=== PATIENT | male | born 1945 | race Caucasian/White ===

== ENCOUNTER → 2016-12-25 | Outpatient (CLI) | payer OTHER ==
[~2016-12-25] MED LIST: ALLO100T PO; ANT25HP PO; ASPI81TA28 PO; ATEN-174 PO; MECL1TAB42 PO; OMEG10007 PO; SIMV40TA4 PO; TRIA37.5 PO; TROS20TA3 PO
[2016-12-25 12:42] LABS: BASO % 0.3 %; BASO ABS # 0.03 K/uL (0-0.2); COMPLETE YES; EOS % 1.6 %; HEMATOCRIT 46.1 % (42-52); IG% 0.6 %; LYMPH % 30.8 %; LYMPH ABS # 2.65 K/uL (1.2-3.4); MEAN CELL VOLUME 87.3 fL (80-100); MEAN CORPUSCULAR HEMOGLOBIN 29.5 pg (25-34); MEAN CORPUSCULAR HGB CONC 33.8 g/dl (32-36); MEAN PLATELET VOLUME 9.7 fL (7.4-10.4); MONO % 10.6 %; NEUT % 56.1 %; PLATELET COUNT 212 K/uL (130-400); RED BLOOD COUNT 5.28 M/uL (4.7-6.1); WHITE BLOOD COUNT 8.59 K/uL (4.8-10.8)
[2016-12-25 12:55] LABS: ALT/SGPT 34 U/L (12-78); BLOOD UREA NITROGEN 39 mg/dl (7-18); BUN/CREATININE RATIO 22.9 (10-20); CALCIUM 8.8 mg/dl (8.5-10.1); CARBON DIOXIDE 28 mmol/L (21-32); CHLORIDE 106 mmol/L (98-107); GLUCOSE 107 mg/dl (70-99); POTASSIUM 3.6 mmol/L (3.5-5.1); SODIUM 141 mmol/L (136-145); URIC ACID 7.6 mg/dl (2.6-7.2)
[2016-12-25 12:57] LABS: ALB/GLOB RATIO 1.4 (0.9-2); ALKALINE PHOSPHATASE 70 U/L (45-117); AST/SGOT 14 U/L (15-37)
== END | disposition home or self-care (01) ==
LOC: C.LABPVFM 08:17
PROVIDERS: ATTEND Family Medicine
DX: I10 Essential (primary) hypertension (principal); M10.9 Gout, unspecified; R97.20 Elevated prostate specific antigen [PSA]; E78.5 Hyperlipidemia, unspecified

== ENCOUNTER → 2017-02-09 | Outpatient (CLI) | payer OTHER ==
[2017-02-09 12:22] LABS: MEAN CELL VOLUME 89.6 fL (80-100); MEAN CORPUSCULAR HEMOGLOBIN 30.6 pg (25-34); MEAN CORPUSCULAR HGB CONC 34.2 g/dl (32-36); MEAN PLATELET VOLUME 9.9 fL (7.4-10.4); PLATELET COUNT 190 K/uL (130-400); RED BLOOD COUNT 5.36 M/uL (4.7-6.1); WHITE BLOOD COUNT 7.71 K/uL (4.8-10.8)
[2017-02-09 12:26] LABS: URINE APPEARANCE CLEAR (CLEAR); URINE BILIRUBIN NEG (NEG); URINE COLOR DK YELLOW; URINE NITRITE NEG (NEG); URINE PH 5.5 (4.5-7.5); URINE SPECIFIC GRAVITY 1.024 (1.000-1.030); UROBILINOGEN NEG (NEG)
[2017-02-09 12:39] LABS: MANUAL MICROSCOPIC REQUIRED? NO; REVIEW REQ? NO
[2017-02-09 12:50] LABS: % FREE PSA 21.3 %; FREE PSA 1.28 ng/ml; PROSTATE SPECIFIC ANTIGEN 6.02 ng/ml (0.000-4.000)
[2017-02-09 13:12] LABS: BLOOD UREA NITROGEN 22 mg/dl (7-18); BUN/CREATININE RATIO 13.6 (10-20); CALCIUM 8.8 mg/dl (8.5-10.1); CARBON DIOXIDE 26 mmol/L (21-32); CHLORIDE 108 mmol/L (98-107); GLUCOSE 127 mg/dl (70-99); PHOSPHORUS 2.6 mg/dl (2.5-4.9); SODIUM 142 mmol/L (136-145)
[2017-02-09 13:15] LABS: URINE TOTAL PROTEIN 11.1 mg/dl (0-11.9)
[2017-02-09 13:16] LABS: URIC ACID 6.9 mg/dl (2.6-7.2)
--- NOTE | 2017-02-13 09:31 | CODING QUERY MEDICAL NECESSITY ---
SUPPORTING DIAGNOSIS NEEDED Dr. Rosales, A supporting diagnosis is required for the test/procedure performed on this patient in order for us to be reimbursed by the patient's insurance. Please provide a supporting diagnosis for the following test/procedure listed below next to the test name along with your signature. *If there is no additional diagnosis for this patient that would support the following test/procedure please document that below next to the test/procedure. Test(s)/Procedure(s) that require a supporting diagnosis: * [id number] PSA DIAGNOSIS: DATE OF SERVICE: 02/09/17 Provider Signature: Date: Thank you Logan Lopez [facility] Information Management Once completed, please kindly fax back to [phone] For questions please call [phone]
== END | disposition home or self-care (01) ==
LOC: C.LABPVFM 08:11
PROVIDERS: ATTEND Internal Medicine Nephrology
DX: N18.3 Chronic kidney disease, stage 3 (moderate) (principal); N25.81 Secondary hyperparathyroidism of renal origin; E55.9 Vitamin D deficiency, unspecified; I12.9 Hypertensive chronic kidney disease with stage 1 through stage 4 chronic kidney disease, or unspecified chronic kidney disease; M10.9 Gout, unspecified; N52.9 Male erectile dysfunction, unspecified; R97.20 Elevated prostate specific antigen [PSA]

== ENCOUNTER → 2017-03-18 | Outpatient (CLI) | payer OTHER ==
[~2017-03-18] MED LIST changes: +GADAVIST IV PRN
--- NOTE | 2017-03-18 10:12 | DIAGNOSTIC IMAGING REPORT ---
MRI OF THE ABDOMEN WITH AND WITHOUT CONTRAST PANCREAS PROTOCOL CLINICAL HISTORY: Pancreatic cyst. COMPARISON STUDY: MRI of the abdomen February 14, 2016. TECHNIQUE: Utilizing a 1.5 Ally magnet and dedicated coil, multiplanar, multiecho imaging of the abdomen was performed pre and postcontrast administration. Post contrast imaging was performed utilizing dynamic enhancement following intravenous injection of 10.2 cc of Gadavist. FINDINGS: The 1.3 cm cystic lesion within the pancreatic neck is unchanged since MRI of February 06, 2015. No enhancement of this lesion is identified. 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 There is no pancreatic ductal dilatation. No additional pancreatic lesions are present. Several T2 hyperintense nonenhancing hepatic lesions measuring up to 1.6 cm reflect cysts. These are unchanged. There are multiple T2 hyperintense nonenhancing bilateral renal lesions which are also consistent with cysts. There is no biliary ductal dilatation. There is no abdominal lymphadenopathy. The spleen and adrenal glands are unremarkable. Note is made of a 4.5 cm apparent T2 hyperintense masslike abnormality within the cecum at the level of the ileocecal valve. This is best shown on coronal 3 estimate image 15 of 32. This is less prominent on the postcontrast images. IMPRESSION: 1. No change in the 1.3 cm cystic pancreatic neck lesion since MRI of February 06, 2015. 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 2. Apparent 4.5 cm T2 hyperintense mass-like abnormality within the cecum at the level of the ileocecal valve. This could reflect stool or the ileocecal valve however a mass could appear similar. If not recently performed, a follow-up colonoscopy is recommended to exclude a lesion. Electronically signed by: Edgardo Hall M.D. 03/18/2017 10:11 AM Dictated Date/Time: 03/18/2017 9:52 AM
== END | disposition home or self-care (01) ==
LOC: C.MRI 08:35
PROVIDERS: ATTEND Registered Nurse
DX: K86.2 Cyst of pancreas (principal)

== ENCOUNTER → 2017-05-21 | Day surgery (SDC) | payer OTHER ==
[2017-05-14 07:52] VITALS: Ht 177.8 cm; Wt 102.3 kg
[~2017-05-21] VITALS: Ht 177.8 cm; Wt 102.3 kg
[~2017-05-21] MED LIST changes: -GADAVIST IV PRN; -MECL1TAB42 PO; +PROPOFOL IV EMULSION 10 MG/ML 20 ML VIAL IV ONE; +SODIUM CHLORIDE 0.9% 500ML 500 ML IV ONE
[2017-05-21 12:30] VITALS: TEMP 36.6
--- NOTE | 2017-05-21 12:52 | Endo History and Physical ---
History & Physical Date of Service: May 21, 2017. Chief Complaint: HISTORY OF POLYPS Referring Physician: DR NELSON History of Present Illness 71 yo CM who presents for colonoscopy secondary to history of colon polyps. Past Medical History High Cholesterol, Hypertension, Other Past Surgical History Hx Cardiac Surgery: No Hx Internal Defibrillator: No Hx Pacemaker: No Hx Abdominal Surgery: Yes (UMBILICAL HERNIA REPAIR S/P RUPTURE) Hx of Implantable Prosthesis: No Hx Post-Op Nausea and Vomiting: No Hx Cancer Surgery: No Hx Thoracic Surgery: No Hx Orthopedic: No Hx Urinary Tract Surgery: No Family History None Social History Smoking Status: Never Smoker Hx Substance Use: No Hx Alcohol Use: No Allergies Coded Allergies: No Known Allergies (Unverified , 05/21/17) Current Medications Reported Home Medications Medications Dose Route/Sig Max Daily Dose Days Date Category [place]-3 (Fish Oil) 1 Ea Cap 1 Cap PO QAM 05/14/17 Reported Trospium Chloride 20 Mg Tab 1 Tab PO QPM 05/14/17 Reported Meclizine HCl 25 Mg Tab 1 Tab PO TID PRN 05/14/17 Reported Dyazide 37.5MG/25MG (Triamterene/HCTZ) Cap 1 Tab PO QAM 03/12/14 Reported Aspirin Ec (Aspirin) 81 Mg Tab 81 Mg PO Q2D 02/11/13 Reported Zocor (Simvastatin) 40 Mg Tab 40 Mg PO QPM 07/12/12 Reported Zyloprim (Allopurinol) 100 Mg Tab 2 Tabs PO QPM 07/12/12 Reported Tenormin (Atenolol) 50 Mg Tab 50 Mg PO QAM 07/12/12 Reported Vital Signs Weight (Kilograms): 102.27 Height (Feet): 5 Height (Inches): 10 Date Time Temp Pulse Resp B/P (MAP) Pulse Ox O2 Delivery O2 Flow Rate FiO2 05/21/17 12:30 36.6 78 18 140/96 (111) 97 Room Air Physical Exam General Appearance: WD/WN, no apparent distress Respiratory/Chest: Auscultation: breath sounds normal Cardiovascular: Heart Auscultation: RRR Abdomen: Bowel Sounds: normal Inspection & Palpation: soft, non-distended, no tenderness, guarding & rebound Assessment and Plan Assessment: 71 yo CM who presents for colonoscopy secondary to history of colon polyps. Plan: Proceed with colonoscopy.
--- NOTE | 2017-05-21 13:42 | GI REPORT ---
Procedure Date: 05/21/2017 1:05 PM Procedure: Colonoscopy Indications: Abnormal MRI of the GI tract Medicines: Monitored Anesthesia Care Complications: No immediate complications. Estimated Blood Loss: Estimated blood loss: none. Procedure: Pre-Anesthesia Assessment: - Prior to the procedure, a History and Physical was performed, and patient medications and allergies were reviewed. The patient's tolerance of previous anesthesia was also reviewed. The risks and benefits of the procedure and the sedation options and risks were discussed with the patient. All questions were answered, and informed consent was obtained. Prior Anticoagulants: The patient has taken aspirin, last dose was 1 day prior to procedure. ASA Grade Assessment: III - A patient with severe systemic disease. After reviewing the risks and benefits, the patient was deemed in satisfactory condition to undergo the procedure. After I obtained informed consent, the scope was passed under direct vision. Throughout the procedure, the patient's blood pressure, pulse, and oxygen saturations were monitored continuously. The scope was introduced through the anus and advanced to the terminal ileum. The colonoscopy was performed without difficulty. The patient tolerated the procedure well. The quality of the bowel preparation was good. The terminal ileum, ileocecal valve, appendiceal orifice, and rectum were photographed. Findings: Multiple small-mouthed diverticula were found in the sigmoid colon. Non-bleeding internal hemorrhoids were found during retroflexion. The hemorrhoids were small. Impression: - Diverticulosis in the sigmoid colon. - Non-bleeding internal hemorrhoids. - No specimens collected. Recommendation: - Resume previous diet. - Continue present medications. - Repeat colonoscopy in 5 years for surveillance. - Return to primary care physician as previously scheduled. Marcelino Holden DO 05/21/2017 1:42:09 PM This report has been signed electronically. Note Initiated On: 05/21/2017 1:05 PM I attest to the content of the Intraoperative Record and orders documented therein, exceptions below
--- NOTE | 2017-05-21 13:43 | Discharge Instructions ---
Endoscopy Patient Instructions Date / Procedure(s) Performed May 21, 2017. Colonoscopy Allergy Information Coded Allergies: No Known Allergies (Unverified , 05/21/17) Discharge Date / Findings May 21, 2017. Diverticulosis Internal hemorrhoids Medication Instructions Stopped Medication(s): ASPIRIN 81MG 05-20-17 Provider Instructions Activity Restrictions - No exercising or heavy lifting for 24 hours. - Do not drink alcohol the day of the procedure. - Do not drive a car or operate machinery until the day after the procedure. - Do not make any important decisions or sign important papers in 24 hours after the procedure. Following Day: - Return to full activity which may include returning to work/school. Diet Start your diet with liquids and light foods (jello, soup, juice, toast). Then eat your usual diet if not nauseated. Treatment For Common After Affects For mild abdominal pain, bloating, or excessive gas: - Rest - Eat lightly - Lie on right side Follow-Up Information Follow-up with DR NELSON as scheduled Anesthesia Information What You Should Know You have had a procedure that required some medicine to reduce anxiety and discomfort. This treatment is called moderate sedation. After receiving the treatment, you may be sleepy, but you will be able to breathe on your own. The effects of the treatment may last for several hours. Follow these instructions along with Activity/Diet recommendations noted above: * Do NOT do anything where dizziness or clumsiness would be dangerous. * Rest quietly at home today, then you can be up and about tomorrow. * Have a responsible person stay with you the rest of today. * You may have had an I.V. today. If so, you may take the dressing off later today. Recommendations Call your doctor if: * Trouble breathing * Continuous vomiting for more than 24 hours * Temperature above 101 degrees * Severe abdominal pain or bloating * Pain not relieved by pain medicine ordered * There is increased drainage or redness from any incision * A large amount of rectal bleeding greater than 2-3 tablespoons. (If you had a polyp/s removed or have hemorrhoids, a small amount of blood - from the rectum is to be expected.) * You have any unanswered questions or concerns. IN THE EVENT OF A SERIOUS EMERGENCY, GO TO THE NEAREST EMERGENCY ROOM Your discharge instructions were prepared by provider Marcelino Holden. Patient Instructions Signature Page Vel Fetterolf Patient (or Guardian) Signature/Date: I have read and understand the instructions given to me by my caregivers. Caregiver/RN/Doctor Signature/Date: The above-named patient and/or guardian has received patient instructions on this date. + Original Patient Signature Page (only) stays with chart. Please make copy for patient.
--- NOTE | 2017-05-21 14:09 | Anesthesiology Progress Note ---
Anesthesia Post Op Note Date & Time May 21, 2017 at 14:08 Vital Signs Pain Intensity: 0 Vital Signs Past 12 Hours Date Time Temp Pulse Resp B/P (MAP) Pulse Ox O2 Delivery O2 Flow Rate FiO2 05/21/17 13:55 67 16 121/69 (86) 97 Room Air 05/21/17 13:40 76 16 93/56 (68) 97 Room Air 05/21/17 12:30 36.6 78 18 140/96 (111) 97 Room Air Notes Mental Status: alert / awake / arousable, participated in evaluation Pt Amnestic to Procedure: Yes Nausea / Vomiting: adequately controlled Pain: adequately controlled Airway Patency, RR, SpO2: stable & adequate BP & HR: stable & adequate Hydration State: stable & adequate Anesthetic Complications: no major complications apparent
[2017-05-21 14:10] VITALS: BP 130/85; PULSE 56; O2SAT 98
== END | disposition home or self-care (01) ==
LOC: C.GI 12:03
PROVIDERS: ATTEND Internal Medicine
DX: Z12.11 Encounter for screening for malignant neoplasm of colon (principal); Z86.010 Personal history of colon polyps; E78.00 Pure hypercholesterolemia, unspecified; I10 Essential (primary) hypertension; K57.30 Diverticulosis of large intestine without perforation or abscess without bleeding; K64.8 Other hemorrhoids; Z13.89 Encounter for screening for other disorder

== ENCOUNTER → 2017-06-01 | Outpatient (CLI) | payer OTHER ==
[~2017-06-01] MED LIST changes: -PROPOFOL IV EMULSION 10 MG/ML 20 ML VIAL IV ONE; -SODIUM CHLORIDE 0.9% 500ML 500 ML IV ONE
--- NOTE | 2017-06-01 15:35 | DIAGNOSTIC IMAGING REPORT ---
RIGHT SHOULDER MIN 2 VIEWS ROUTINE CLINICAL HISTORY: Persistent right shoulder pain COMPARISON: None. DISCUSSION: No fractures or dislocations are visualized. Degenerative changes are present within the AC joint. There are several adjacent corticated ossicles which are felt to be chronic. 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 No acute fractures. No destructive lesions are visualized. Electronically signed by: Quintin Royal M.D. 06/01/2017 3:34 PM Dictated Date/Time: 06/01/2017 3:33 PM
== END | disposition home or self-care (01) ==
LOC: C.RADBC 15:10
PROVIDERS: ATTEND Physician Assistant
DX: M25.511 Pain in right shoulder (principal)

== ENCOUNTER → 2017-06-25 | Outpatient (CLI) | payer OTHER ==
[2017-06-25 13:45] LABS: CHOLESTEROL/HDL RATIO 3.1
== END | disposition home or self-care (01) ==
LOC: C.LABPVFM 07:35
PROVIDERS: ATTEND Family Medicine
DX: E78.5 Hyperlipidemia, unspecified (principal)

== ENCOUNTER → 2017-08-27 | Outpatient (CLI) | payer OTHER ==
[2017-08-27 12:30] LABS: HEMATOCRIT 46.6 % (42-52); MEAN CELL VOLUME 88.9 fL (80-100); MEAN CORPUSCULAR HGB CONC 33.7 g/dl (32-36); PLATELET COUNT 207 K/uL (130-400); RED BLOOD COUNT 5.24 M/uL (4.7-6.1); WHITE BLOOD COUNT 8.46 K/uL (4.8-10.8)
[2017-08-27 12:55] LABS: ALT/SGPT 29 U/L (12-78); AST/SGOT 15 U/L (15-37); BLOOD UREA NITROGEN 22 mg/dl (7-18); BUN/CREATININE RATIO 13.7 (10-20); CALCIUM 8.9 mg/dl (8.5-10.1); CARBON DIOXIDE 29 mmol/L (21-32); CHLORIDE 105 mmol/L (98-107); CREATININE 1.59 mg/dl (0.60-1.40); GLUCOSE 122 mg/dl (70-99); POTASSIUM 3.9 mmol/L (3.5-5.1); SODIUM 138 mmol/L (136-145); URIC ACID 6.8 mg/dl (2.6-7.2)
[2017-08-27 12:58] LABS: ALB/GLOB RATIO 1.1 (0.9-2); ALKALINE PHOSPHATASE 69 U/L (45-117)
[2017-08-27 13:00] LABS: URINE TOTAL PROTEIN 16.8 mg/dl (0-11.9)
[2017-08-27 13:06] LABS: URINE APPEARANCE CLOUDY (CLEAR); URINE BILIRUBIN NEG (NEG); URINE COLOR DK YELLOW; URINE NITRITE NEG (NEG); URINE SPECIFIC GRAVITY 1.027 (1.000-1.030); UROBILINOGEN NEG (NEG)
[2017-08-27 13:07] LABS: MANUAL MICROSCOPIC REQUIRED? NO; REVIEW REQ? NO
== END | disposition home or self-care (01) ==
LOC: C.LABPVFM 08:38
PROVIDERS: ATTEND Family Medicine
DX: I12.9 Hypertensive chronic kidney disease with stage 1 through stage 4 chronic kidney disease, or unspecified chronic kidney disease (principal); N18.3 Chronic kidney disease, stage 3 (moderate); E55.9 Vitamin D deficiency, unspecified; N25.81 Secondary hyperparathyroidism of renal origin

== ENCOUNTER → 2017-12-29 | Outpatient (CLI) | payer OTHER | END | disposition home or self-care (01) | LOC: C.LABPVFM 09:41 | PROVIDERS: ATTEND Family Medicine | DX: I12.9 Hypertensive chronic kidney disease with stage 1 through stage 4 chronic kidney disease, or unspecified chronic kidney disease (principal); M10.9 Gout, unspecified; E78.5 Hyperlipidemia, unspecified; N18.3 Chronic kidney disease, stage 3 (moderate); D49.0 Neoplasm of unspecified behavior of digestive system; K57.90 Diverticulosis of intestine, part unspecified, without perforation or abscess without bleeding; R73.01 Impaired fasting glucose ==

== ENCOUNTER 2025-08-24 10:57 | Inpatient (IN) ==
[2025-08-24] MEDS: SODIUM CHLORIDE 0.9% 1,000 ML IV ONE (11:29)
--- NOTE | 2025-08-24 11:41 | Emergency Department Note ---
Impression & Plan Cellulitis and abscess of buttock, Abscess of buttock, right ED Provider Note CHIEF COMPLAINT: Abscess to the right buttock HISTORY OF PRESENTING ILLNESS: Patient is a 79-year-old male who presents to the emergency department today for complaints of an abscess to his right buttocks. He was seen by his PCP on August 22 and started on Augmentin twice a day for this abscess. Over the past several days he began feeling weak, dizzy, chills, and just unwell. He reports taking the antibiotic as prescribed. Patient does have a history of prostate cancer and CKD. He denies any significant pain and states his pain is currently a 2/10. Patient denies chest pain, sob, breathing difficulties, abdominal pain, headache, fevers/chills, blood in stool or urine, any recent illness, or any recent travel. REVIEW OF SYSTEMS: See HPI for pertinent positives and pertinent negatives. ALLERGIES: See below MEDICATIONS: See below PAST MEDICAL HISTORY: See below PHYSICAL EXAM: VITALS: Vitals are noted on the nurse's note and reviewed by myself. GENERAL: Non toxic, in no acute distress, non-diaphoretic. SKIN: There is a large approximately 4 inch erythematous, induration area noted. No open areas or drainage. Capillary refill <2 sec. HEART: Regular rate and rhythm without murmurs gallops or rubs. LUNGS: Clear to auscultation bilaterally without wheezes, rales or rhonchi. No retractions or accessory muscle use. ABDOMEN: Positive bowel sounds x 4. Normal tympanic percussion. Soft, nontender to palpation. MUSCULOSKELETAL: No gross musculoskeletal defects. NEURO: Patient was alert and oriented. No focal neurological deficits. DIFFERENTIAL DIAGNOSIS: abscess, perirectal abscess, perianal abscess, infection, sepsis, cyst, among others. ED COURSE AND MEDICAL DECISION MAKING: HISTORY FROM INDEPENDENT HISTORIAN: History was provided by the patient and his who is at bedside. MONITOR: Continuous front desk monitor: Order was placed for continuous front desk monitor. Patient was placed on the front desk monitor and continuous pulse ox. Patient was noted to be in normal sinus rhythm at an initial rate of 87 bpm per my interpretation. INTERPRETATION OF LABS: I interpreted the labs with full lab results as below in the lab section of this note. Laboratory results pertinent to the emergent complaint are discussed in the MDM section below. The patient was advised to follow up with their PCP and/or specialist(s) for further outpatient monitoring and management of any abnormal results. INTERPRETATION OF IMAGING: Imaging studies were interpreted by myself and read by radiology as per the imaging section of this note. The patient was advised to follow up with their PCP and/or specialist(s) for further outpatient management of any non-emergent abnormal findings. CHRONIC MEDICAL/SOCIAL CONDITIONS AFFECTING CARE: No social concerns were identified as barriers to patients care. ESCALATION OF CARE CONSIDERED: I considered admission on this patient due to outpatient failure with antibiotics and worsening condition. I consulted with Dr. Garza general surgery. I also consulted with Dr. Vance for admission to the hospital. CONSULTATIONS: I had a meaningful discussion about this patient with Dr. Alvarez who agrees with my assessment and the treatment plan. SUMMARY: I examined the patient for complaints of abscess on the right buttocks. A physical exam and history were performed. Nursing notes, EMR, and medication list were personally reviewed. This patient presents with a painful fluctuant area and surrounding erythema, concerning for an abscess of right buttocks. CT scan ordered and showed skin thickening, moderate stranding and a small amount of fluid within the inferior medial right buttocks likely cellulitis. Inflammation does extend of the right perineum and perianal region with possible tiny developing abscess. No concern for osteomyelitis. Patient is not immunocompromised, and there is no bullae, pain out of proportion, or rapid progression concerning for necrotizing fasciitis. Due to the patient's failure of outpatient antibiotics will admit the patient to medicine and consult with colorectal. Patient started on Zosyn 4.5 mg IV here in the emergency department. He was also given 1 L of normal saline and declined pain medication or antiemetics. I consulted with Dr. Garza. I also spoke with Dr. Vance for admission and the patient was accepted. DIAGNOSIS: Cellulitis right buttocks, small abscess formation TREATMENT PLAN/DISCHARGE INSTRUCTIONS: Admit to medicine. The chart was completed utilizing [employer] Speech voice recognition software.Grammatical errors, random word insertions, pronoun errors, and incomplete sentences are an occasional consequence of this system due to software limitations, ambient noise, and hardware issues.Any formal questions or concerns about the content, text, or information contained within the body of this dictation should be directly addressed to the physician for clarification. Past Med/Surg History Problem List (Updated 08/24/25 @ 15:05 by LINDA Larios) Cellulitis and abscess of buttock (Acute) Abscess of buttock, right (Acute) Cyst of pancreas Gustatory rhinitis Anemia Liver cyst Fatty liver Elevated bilirubin Elevated ferritin Vitamin D deficiency Prostate cancer (Chronic 08/02/20) Chronic kidney disease, stage III (moderate) Hypertension Hemorrhoids Arthritis of both hands Gout Hyperlipidemia Medical History Scrotal itching Excess sun exposure 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CHIGNIK LAGOON (hard of hearing) Rt ear Surgical History History of colonoscopy History of prostate biopsy (08/02/20) History of spinal surgery (1995) Post spinal discectomy, osteophytectomy one lumbar interspac Hx of hernia repair (2014) Hx of cholecystectomy (2014) Family History Father , Passed age 88 of complications of bladder/prostate cancer Prostate cancer, Onset Age: 80 had brachytherapy then became metastatic to bladder later Mother , Still living age 100 Endometrial cancer "history of female cancer" still living - had hysterectomy Brother Prostate cancer, Onset Age: 70 had "prostate frozen" Brother No problems noted. Sister No problems noted. Sister No problems noted. Son No problems noted. Son No problems noted. Son No problems noted. Other No family history of adverse response to anesthesia Denies family history of Ovarian cancer Myocardial infarction Breast cancer Colorectal cancer Social History Smoking Status: Former smoker Tobacco Type: Cigarettes Age Started Using Tobacco: 19; packs per day: 0.5; Second Hand Exposure: Yes (Father ); Do You Dip or Chew Tobacco: Yes (1 can every 1-2 days); Hx Alcohol Use: No Hx Substance Use: No Preferred Language: Swedish Communication Ability: Effective Visual Impairment: Limited Hearing Ability: Hard of Hearing Shot [employer] Drill Operator Required: No Beliefs That Will Affect Care: None marital status: Current Living Situation: Spouse current occupational status: employed 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 How many Children do You have: 3 Feels Safe at Home: Yes Childhood Exposure to Second-Hand Smoke: Yes (Father smoked in home ) Diet: regular caffeine: Yes (1 cup coffee/day ) Dental Care, Regularly: Yes Physical Activity Frequency: Daily Seatbelt Use: sometimes Sunscreen Use: No Assistive Devices: Glasses Allergies Allergies Allergy/AdvReac Type Severity Reaction Status Date / Time No Known Allergies Allergy Verified 08/22/25 10:17 Home Meds Home Medications Medication Instructions Recorded Confirmed aspirin 81 mg tablet 81 mg PO .COMPLEX 07/06/19 08/24/25 dutasteride 0.5 mg capsule 0.5 mg PO QAM 01/03/25 08/24/25 cholecalciferol (vitamin D3) 50 0 mcg PO DAILY 08/24/25 08/24/25 mcg (2,000 unit) capsule Previous Rx's Medication Instructions Recorded simvastatin 20 mg tablet 20 mg PO HS #90 tabs 10/10/24 allopurinol 100 mg tablet 200 mg (2 x 100 mg) PO QPM #180 05/23/25 tabs amlodipine 5 mg tablet 5 mg PO QAM #90 tabs 06/12/25 atenolol 50 mg tablet 50 mg PO QAM #90 tabs 06/20/25 triamterene 37.5 1 tab PO QAM #90 tabs 06/20/25 mg-hydrochlorothiazide 25 mg tablet amoxicillin 875 mg-potassium 1 tab PO BID #20 tabs 08/22/25 clavulanate 125 mg tablet Results & Data (ED) Vital Signs Vital Signs - 24 hr 08/24/25 10:59 08/24/25 12:57 Temperature 36.1 C L 36.8 C Temperature Source Temporal Artery Scan Oral Pulse Rate 84 Pulse Rate [Right Finger] 87 Pulse Rhythm [Right Finger] Regular Pulse Strength [Right Finger] Normal Respiratory Rate 18 16 Respiratory Effort / Characteristics Non-Labored Non-Labored Respiratory Depth Normal Normal Respiratory Pattern Regular Blood Pressure 129/75 Blood Pressure [Left Arm] 124/74 Blood Pressure Mean 93 Blood Pressure Mean [Left Arm] 90 Blood Pressure Position [Left Arm] Lying Pulse Oximetry 97 100 Oxygen Delivery Method Room Air Room Air Sepsis Recent Fever Within 48 Hours No Sepsis New/Unexplained Change in Mental Status No Sepsis Action Taken by Nursing No Action Required Laboratory Data 08/24/25 11:31 08/24/25 11:31 Lab Results 08/24/25 Range/Units 11:31 WBC 12.77 H (4.8-10.8) K/ul RBC 3.97 L (4.70-6.10) M/uL Hgb 12.8 L (14.0-18.0) g/dL Hct 35.5 L (42.0-52.0) % MCV 89.4 (80.0-100.0) fL MCH 32.2 (25.0-34.0) pg MCHC 36.1 H (32.0-36.0) g/dL RDW Std Deviation 43.9 (36.4-46.3) fL RDW Coeff of Martir 13.3 (11.5-14.5) % Plt Count 219 (130-400) K/uL MPV 9.5 (9.4-12.4) fL Immature Gran % (Auto) 0.5 % Neut % (Auto) 88.4 % Lymph % (Auto) 4.1 % Howell % (Auto) 6.0 % Eos % (Auto) 0.5 % Baso % (Auto) 0.5 % Neut # (Auto) 11.29 H (1.40-6.50) K/uL Lymph # (Auto) 0.52 L (1.20-3.40) K/uL Howell # (Auto) 0.77 H (0.11-0.59) K/uL Eos # (Auto) 0.06 (0.00-0.50) K/uL Baso # (Auto) 0.06 (0.00-0.20) K/uL Immature Gran # (Auto) 0.07 (0.01-0.20) K/uL Sodium 136 (136-145) mmol/L Potassium 3.5 (3.5-5.1) mmol/L Chloride 99 (98-107) mmol/L Carbon Dioxide 28 (21-32) mmol/L Anion Gap 9 (3-11) BUN 30 H (6-23) mg/dl Creatinine 1.79 H (0.6-1.4) mg/dl Est Cr Clr Drug Dosing 39.4 ml/min eGFR 38.31 BUN/Creatinine Ratio 16.8 (10-20) Glucose 150 H (70-99(Fasting)) mg/dl Calcium 9.1 (8.6-10.3) mg/dl Total Bilirubin 4.3 H (0.2-1.0) mg/dl AST 24 (13-39) U/L ALT 35 (7-52) U/L Alkaline Phosphatase 90 (34-104) U/L Total Protein 7.4 (6.0-8.3) gm/dl Albumin 4.4 (3.4-5.0) gm/dl Globulin 3.0 (2.5-4.0) gm/dl Albumin/Globulin Ratio 1.5 (0.9-2) Administered Medications Discontinued Medications Sodium Chloride (Nss) 1,000 mls @ 999 mls/hr IV .Q1H1M ONE Stop: 08/24/25 12:18 Last Infusion: 08/24/25 12:19 Dose: Infused Documented By: jesús Admin: 08/24/25 11:29 Dose: 999 mls/hr Documented By: jesús Piperacillin Sod/Tazobactam Sod (Zosyn) 4.5 gm in 100 mls @ 200 mls/hr IV NOW ONE; Protocol Stop: 08/24/25 13:42 Last Infusion: 08/24/25 14:07 Dose: Infused Documented By: nanette Admin: 08/24/25 13:21 Dose: 200 mls/hr Documented By: nanette Ioversol (Optiray 320 100ml) 93 ml IV ONCE ONE Stop: 08/24/25 12:24 Last Admin: 08/24/25 12:23 Dose: 93 ml Documented By: ANASTACIO Imaging Data Radiologist's Impression: Pelvis CT 08/24/25 11:18 CT pelvis w/IV con only CLINICAL HISTORY: Right buttock abscess. COMPARISON STUDY: Prostate MRI May 25, 2020. TECHNIQUE: Axial images of the pelvis were obtained following intravenous injection of 93 cc Optiray 320 IV. Sagittal and coronal reformats were viewed. A dose lowering technique was utilized adhering to the principles of ALARA. FINDINGS: Caliber and wall thickness of visualized small and large bowel are normal. There is sigmoid diverticulosis without evidence for acute diverticulitis. Mildly enlarged right external iliac lymph node on image 201 measures 1.3 cm. This has increased in size since MRI of May 25, 2020. This is likely reactive. The prostate is moderately enlarged, measuring 6 cm in transverse diameter. Of note, there is skin thickening with moderate stranding of the inferior medial right buttock consistent with cellulitis. No soft tissue gas. A small amount of associated subcutaneous fluid is present. There is also a 1.8 cm subcutaneous focus within the inferior medial right buttock on image 465 which demonstrates partial mild peripheral enhancement. Inflammation extends to to the right perineum and right perianal region. No rim-enhancing perianal fluid collection is present. IMPRESSION: Skin thickening, moderate stranding and a small amount of fluid within the inferior medial right buttock consistent with cellulitis. Inflammation extends to the right perineum and perianal region. No perianal rim-enhancing fluid collection. A small underlying fistula would be difficult to exclude by CT. 1.8 cm subcutaneous focus within the inferior medial right buttock which demonstrates mild partial peripheral enhancement suggestive of a tiny developing abscess. No soft tissue gas. ACT 112: Negative or not required by law. Electronically signed by: Edgardo Hall M.D. 08/24/2025 12:43 PM Discharge Plan Visit Data Chief Complaint: Infection Stated Complaint: INFECTION, REF BY DOC ED Provider: Conner Alvarez ED Midlevel Provider: Mamie Rosales Discharge Problem: Cellulitis and abscess of buttock, Abscess of buttock, right Patient Disposition: Admitted As Inpatient Condition: Good Discharge Instructions Interventions: ED Discharge Assessment Last Done: 08/24/25 14:54 Prescriptions Prescriptions: No Action simvastatin 20 mg tablet 20 mg PO HS Qty: 90 3RF allopurinol 100 mg tablet 200 mg PO QPM Qty: 180 3RF amlodipine 5 mg tablet 5 mg PO QAM Qty: 90 3RF atenolol 50 mg tablet 50 mg PO QAM Qty: 90 2RF triamterene-hydrochlorothiazid 37.5-25 mg tablet 1 tab PO QAM Qty: 90 3RF aspirin 81 mg tablet 81 mg PO .COMPLEX Patient Comments: 81 mg PO every other day Rx Instructions: 81 mg PO every other day dutasteride 0.5 mg capsule 0.5 mg PO QAM amoxicillin-pot clavulanate 875-125 mg tablet 1 tab PO BID Qty: 20 0RF cholecalciferol (vitamin D3) 50 mcg (2,000 unit) capsule 0 mcg PO DAILY Patient Comments: 08/24 Per patient not sure about the strength but he takes it once a month Referrals Referrals: Jayden Granados DO [Primary Care Provider] -
[2025-08-24 11:55] LABS: Hematocrit (blood only) 35.5 % (42.0-52.0); Hemoglobin 12.8 g/dL (14.0-18.0); Immature Granulocytes # (auto) 0.07 K/uL (0.01-0.20); Immature Granulocytes % (auto) 0.5 %; Mean Corpuscular Hemoglobin 32.2 pg (25.0-34.0); Mean Corpuscular Volume 89.4 fL (80.0-100.0); Platelet Count 219 K/uL (130-400); RDW Standard Deviation 43.9 fL (36.4-46.3); Red Blood Count 3.97 M/uL (4.70-6.10); White Blood Count 12.77 K/ul (4.8-10.8)
[2025-08-24 12:10] LABS: Alanine Aminotransferase 35.0 U/L (7-52); Albumin Globulin Ratio 1.5 (0.9-2); Albumin Level 4.4 gm/dl (3.4-5.0); Alkaline Phosphatase 90.0 U/L (34-104); Anion Gap 9.0 (3-11); Bilirubin,Total 4.3 mg/dl (0.2-1.0); Blood Urea Nitrogen 30.0 mg/dl (6-23); Calcium 9.1 mg/dl (8.6-10.3); Carbon Dioxide 28.0 mmol/L (21-32); Chloride 99.0 mmol/L (98-107); Creatinine Clr Calc Pharmacy 39.4 ml/min; Globulin 3.0 gm/dl (2.5-4.0); Glucose 150.0 mg/dl (70-99(Fasting)); Potassium 3.5 mmol/L (3.5-5.1); Sodium 136.0 mmol/L (136-145); Total Protein 7.4 gm/dl (6.0-8.3)
[2025-08-24] MEDS: OPTIRAY 320 100ml IV ONE (12:23)
--- NOTE | 2025-08-24 12:45 | CT Scan Report ---
CT pelvis w/IV con only CLINICAL HISTORY: Right buttock abscess. COMPARISON STUDY: Prostate MRI May 25, 2020. TECHNIQUE: Axial images of the pelvis were obtained following intravenous injection of 93 cc Optiray 320 IV. Sagittal and coronal reformats were viewed. A dose lowering technique was utilized adhering t o the principles of ALARA. FINDINGS: Caliber and wall thickness of visualized small and large bowel are normal. There is sigmoid diverticulosis without evidence for acute diverticulitis. Mildly enlarged right external iliac lymph node on image 201 measures 1.3 cm. This has increased in size since MRI of May 25, 2020. This i s likely reactive. The prostate is moderately enlarged, measuring 6 cm in transverse diameter. Of not e, there is skin thickening with moderate stranding of the inferior medial right buttock consistent w ith cellulitis. No soft tissue gas. A small amount of associated subcutaneous fluid is present. There is also a 1.8 cm subcutaneous focus within the inferior medial right buttock on image 465 which demo nstrates partial mild peripheral enhancement. Inflammation extends to to the right perineum and right perianal region. No rim-enhancing perianal fluid collection is present. IMPRESSION: Skin thickening, moderate stranding and a small amount of fluid within the inferior medi al right buttock consistent with cellulitis. Inflammation extends to the right perineum and perianal region. No perianal rim-enhancing fluid collection. A small underlying fistula would be difficult to exclude by CT. 1.8 cm subcutaneous focus within the inferior medial right buttock which demonstrates mild partial peripheral enhancement suggestive of a tiny developing abscess. No soft tissue gas. ACT 112: Negative or not required by law. Electronically signed by: Edgardo Hall M.D. 08/24/2025 12:43 PM
[2025-08-24] MEDS: PIPERACILLIN/TAZOBACTAM 4.5 GM/100 ML BAG IV ONE (13:21)
--- NOTE | 2025-08-24 14:57 | Surgery Consultation ---
<Statement entered by Ankit Garza MD - 08/25/25 07:49> I independently saw and examined the patient, and I agree w the assessment and plan of care. Date of Consultation August 24, 2025 Assessment & Plan (1) Abscess of buttock, right: This is a 79yM with a PMH of prostate ca, HTN, hemorrhoids, HLD, fatty liver who presents to the [facility] [place] ED on08/24/25 with complaints of buttocks pain. Patient states it started on Thursday with the pain and progressively had gotten worse. He mentions low grade temps thursday/thursday. Apparently 2 days ago he saw his PCP who prescribed him oral abx for this and he has been taking them, but steadily feeling worse. Because of his symptoms he presented to the ER. A Pelvic CT scan was performed that showed "skin thickening, moderate stranding and a small amount of fluid within the inferior medial right buttock consistent with cellulitis. Inflammation extends to the right perineum and perianal region. No perianal rim-enhancing fluid collection. A small underlying fistula would be difficult to exclude by CT. 1.8 cm subcutaneous focus within the inferior medial right buttock which demonstrates mild partial peripheral enhancement suggestive of a tiny developing abscess." Patient denies issues of the buttock region before. He has had no drainage from the area. He mentions a similar issue happening on his arm some years ago. He denies issues with his bowel movements. He had a colonoscopy before and reports is up to date. In the ER labs show WBC 12.7, Hbg 12.8, Cr 1.79. Vital signs are stable and he is without fevers. On exam he has an area of induration and mild redness from right buttock region towards the perineum. Tender to palpation. Looks like it may be trying to come to a head and open up. Recommend admission to the hospital for IV abx. He will benefit from warm compresses to the area. Right now no indications for surgical I&D but we will follow along and see how things improve or evolve. History of Present Illness History of Present Illness This is a 79yM with a PMH of prostate ca, HTN, hemorrhoids, HLD, fatty liver who presents to the [facility] [place] ED on08/24/25 with complaints of buttocks pain. Patient states it started on Thursday with the pain and progressively had gotten worse. He mentions low grade temps thursday/thursday. Apparently 2 days ago he saw his PCP who prescribed him oral abx for this and he has been taking them, but steadily feeling worse. Because of his symptoms he presented to the ER. A Pelvic CT scan was performed that showed "skin thickening, moderate stranding and a small amount of fluid within the inferior medial right buttock consistent with cellulitis. Inflammation extends to the right perineum and perianal region. No perianal rim-enhancing fluid collection. A small underlying fistula would be difficult to exclude by CT. 1.8 cm subcutaneous focus within the inferior medial right buttock which demonstrates mild partial peripheral enhancement suggestive of a tiny developing abscess." Patient denies issues of the buttock region before. He has had no drainage from the area. He mentions a similar issue happening on his arm some years ago. He denies issues with his bowel movements. He had a colonoscopy before and reports is up to date. He states he has not had much to eat in the last few days. Allergies Allergy/AdvReac Type Severity Reaction Status Date / Time No Known Allergies Allergy Verified 08/22/25 10:17 Home Medications Medication Instructions Recorded Confirmed Type aspirin 81 mg tablet 81 mg PO .COMPLEX 07/06/19 08/24/25 History simvastatin 20 mg tablet 20 mg PO HS #90 tabs 10/10/24 08/24/25 Rx dutasteride 0.5 mg capsule 0.5 mg PO QAM 01/03/25 08/24/25 History allopurinol 100 mg tablet 200 mg (2 x 100 mg) PO QPM #180 05/23/25 08/24/25 Rx tabs amlodipine 5 mg tablet 5 mg PO QAM #90 tabs 06/12/25 08/24/25 Rx atenolol 50 mg tablet 50 mg PO QAM #90 tabs 06/20/25 08/24/25 Rx triamterene 37.5 1 tab PO QAM #90 tabs 06/20/25 08/24/25 Rx mg-hydrochlorothiazide 25 mg tablet amoxicillin 875 mg-potassium 1 tab PO BID #20 tabs 08/22/25 08/24/25 Rx clavulanate 125 mg tablet cholecalciferol (vitamin D3) 50 0 mcg PO DAILY 08/24/25 08/24/25 History mcg (2,000 unit) capsule Patient History Medical History Scrotal itching Excess sun exposure 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[place] (hard of hearing) Rt ear Surgical History History of colonoscopy History of prostate biopsy (08/02/20) History of spinal surgery (1995) Post spinal discectomy, osteophytectomy one lumbar interspac Hx of hernia repair (2014) Hx of cholecystectomy (2014) Family History Father , Passed age 88 of complications of bladder/prostate cancer Prostate cancer, Onset Age: 80 had brachytherapy then became metastatic to bladder later Mother , Still living age 100 Endometrial cancer "history of female cancer" still living - had hysterectomy Brother Prostate cancer, Onset Age: 70 had "prostate frozen" Brother No problems noted. Sister No problems noted. Sister No problems noted. Son No problems noted. Son No problems noted. Son No problems noted. 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 Required: No Beliefs That Will Affect Care: None marital status: Current Living Situation: Spouse current occupational status: employed 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 How many Children do You have: 3 Other Information That Helps Us Care for You: No Feels Safe at Home: Yes Safety Concerns: Feels Safe At This Time Childhood Exposure to Second-Hand Smoke: Yes (Father smoked in home ) Diet: regular caffeine: Yes (1 cup coffee/day ) Dental Care, Regularly: Yes Physical Activity Frequency: Daily Seatbelt Use: sometimes Sunscreen Use: No Assistive Devices: None Review of Systems Constitutional: + fever (subjective), + chills and + wea kness Respiratory: no dyspnea Gastrointestinal: no abdominal pain and no change in bowel habits right buttock pain Physical Exam Physical Exam: awake, no distress, alert Respiratory: normal respiratory effort Skin: area of induration and mild redness from right buttock region towards the perineum. Tender to palpation. Looks like it may be trying to come to a head and open up Results & Data Vital Signs (Past 12 Hours) Vital Signs Temp Pulse Pulse Resp BP BP Pulse Ox 08/24/25 12:57 98.2 F 87 16 124/74 100 08/24/25 10:59 97.0 F L 84 18 129/75 97 O2 Del Method 08/24/25 12:57 Room Air 08/24/25 10:59 Room Air Diagnostic Findings CT pelvis w/IV con only CLINICAL HISTORY: Right buttock abscess. COMPARISON STUDY: Prostate MRI May 25, 2020. TECHNIQUE: Axial images of the pelvis were obtained following intravenous injection of 93 cc Optiray 320 IV. Sagittal and coronal reformats were viewed. A dose lowering technique was utilized adhering to the principles of ALARA. FINDINGS: Caliber and wall thickness of visualized small and large bowel are normal. There is sigmoid diverticulosis without evidence for acute diverticulitis. Mildly enlarged right external iliac lymph node on image 201 measures 1.3 cm. This has increased in size since MRI of May 25, 2020. This is likely reactive. The prostate is moderately enlarged, measuring 6 cm in transverse diameter. Of note, there is skin thickening with moderate stranding of the inferior medial right buttock consistent with cellulitis. No soft tissue gas. A small amount of associated subcutaneous fluid is present. There is also a 1.8 cm subcutaneous focus within the inferior medial right buttock on image 465 which demonstrates partial mild peripheral enhancement. Inflammation extends to to the right perineum and right perianal region. No rim-enhancing perianal fluid collection is present. IMPRESSION: Skin thickening, moderate stranding and a small amount of fluid within the inferior medial right buttock consistent with cellulitis. Inflammation extends to the right perineum and perianal region. No perianal rim-enhancing fluid collection. A small underlying fistula would be difficult to exclude by CT. 1.8 cm subcutaneous focus within the inferior medial right buttock which demonstrates mild partial peripheral enhancement suggestive of a tiny developing abscess. No soft tissue gas ACT 112: Negative or not required by law. Electronically signed by: Edgardo Hall M.D. 08/24/2025 12:43 PM Dictated: 08/24/25 1235 Transcribed: 08/24/25 1236 PG Care Time/CCT Total # of Minutes Spent Total Time Spent with Patient: Total time spent is greater than 50% in coordination of care (as documented) at patient's floor/unit and/or counseling patient: Coding Level of Care Code 38048 INT INP/OBS CARE 140MIN Diagnoses Abscess of buttock, right L02.31
--- NOTE | 2025-08-24 15:13 | History & Physical Report ---
Date of Service August 24, 2025 Assessment & Plan (1) Abscess of buttock, right: Plan: Vel is a 79yo male with a PMH of prostate cancer with no prostate surgical history, HTN, hemorrhoids, HLD, put on Augmentin for R buttock abscess/cellulitis 2 days ago (08/22) by PCP, came to the ED today for no reported improvement and continued significant pain, pt was admitted for management of inadequate outpatient abx treatment of skin infection. Require inpatient admission for management of persistent cellulitis with escalation of IV antibiotics, vital sign monitoring, and daily labs. #Cellulitis of R buttock #Small abscess, draining WBC 12.7 with neutrophilic predominance; vital signs are stable and he is without fevers, body aches or chills at this time Area of induration and erythema from right medial buttock region towards the perineum which is tender to palpation - due to inadequate improvement while on Augmentin over the past 48hrs, will suspect MRSA and treat with vancomycin IV; zosyn discontinued as likelihood of pseudomonal infection of either skin or lower GI tract is low Vancomycin consult following - encouraged to try warm compresses to the area - gen surg consulted, appreciate recs: currently no indications for surgical I&D as wound is draining, but they will follow along - CBC AM #CKD III Creatinine 1.79, up from his usual baseline appearing around 1.5-1.6 (last nephro saying 1.4-1.7) - pt admits to lack of PO fluid intake, so there is likely some dehydration, but there is no evidence of CORINNE at this time - adding LR 125cc/hr as PO fluid intake remains low - BMP AM chronic, stable: HLD- continue simvastatin 20mg daily, aspirin 81mg daily HTN- continue amlodipine and atenolol daily, may hold per low BP protocol prostate cancer- continue finasteride while in hospital VTE ppx: lovenox 40mg subQ q24 dispo: med/surg History of Present Illness Chief Complaint: R buttock pain Primary Care Provider: Jayden Granados, Vel is a 79yo male with history of prostate cancer with no surgical history, CKD3, HTN, HLD here with concern for non-improving R buttock skin infection. Notes he started feeling "crummy" last weekend maybe as early as sunday 08/19 with general malaise. States he may have had a low-grade fever and some chills on Thursday into Tuesday 08/21. Went to his PCP on 08/22 for concern about pain on his R inner buttock, was prescribed Augmentin for suspected skin infection, and well as given a steroid cream (Lotrisone) for a rash on b/l buttocks L>R. Came to the ER today due to concern about his infection not improving- notes it hasn't gotten much worse, just not getting any better. Denies any significant fever, body aches, chills, or sweats within the past few days but does note he's been feeling a bit generally fatigued and with low dietary/fluid intake for about the last 5 days. Denies any concern about bowel movements, last was within the past couple days, no pain or blood noted. 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 ER course: 1L NS bolus, started on zosyn 4.5g (has since been discontinued) Allergies Allergy/AdvReac Type Severity Reaction Status Date / Time No Known Allergies Allergy Verified 08/22/25 10:17 Home Medications Medication Instructions Recorded Confirmed Type aspirin 81 mg tablet 81 mg PO .COMPLEX 07/06/19 08/24/25 History simvastatin 20 mg tablet 20 mg PO HS #90 tabs 10/10/24 08/24/25 Rx dutasteride 0.5 mg capsule 0.5 mg PO QAM 01/03/25 08/24/25 History allopurinol 100 mg tablet 200 mg (2 x 100 mg) PO QPM #180 05/23/25 08/24/25 Rx tabs amlodipine 5 mg tablet 5 mg PO QAM #90 tabs 06/12/25 08/24/25 Rx atenolol 50 mg tablet 50 mg PO QAM #90 tabs 06/20/25 08/24/25 Rx triamterene 37.5 1 tab PO QAM #90 tabs 06/20/25 08/24/25 Rx mg-hydrochlorothiazide 25 mg tablet amoxicillin 875 mg-potassium 1 tab PO BID #20 tabs 08/22/25 08/24/25 Rx clavulanate 125 mg tablet cholecalciferol (vitamin D3) 50 0 mcg PO DAILY 08/24/25 08/24/25 History mcg (2,000 unit) capsule Past Med/Surg History Problem List (Updated 08/24/25 @ 15:05 by LINDA Larios) Cellulitis and abscess of buttock (Acute) Abscess of buttock, right (Acute) Cyst of pancreas Gustatory rhinitis Anemia Liver cyst Fatty liver Elevated bilirubin Elevated ferritin Vitamin D deficiency Prostate cancer (Chronic 08/02/20) Chronic kidney disease, stage III (moderate) Hypertension Hemorrhoids Arthritis of both hands Gout Hyperlipidemia Medical History Scrotal itching Excess sun exposure 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[place] (hard of hearing) Rt ear Surgical History History of colonoscopy History of prostate biopsy (08/02/20) History of spinal surgery (1995) Post spinal discectomy, osteophytectomy one lumbar interspac Hx of hernia repair (2014) Hx of cholecystectomy (2014) Family History Father , Passed age 88 of complications of bladder/prostate cancer Prostate cancer, Onset Age: 80 had brachytherapy then became metastatic to bladder later Mother , Still living age 100 Endometrial cancer "history of female cancer" still living - had hysterectomy Brother Prostate cancer, Onset Age: 70 had "prostate frozen" Brother No problems noted. Sister No problems noted. Sister No problems noted. Son No problems noted. Son No problems noted. Son No problems noted. Other No family history of adverse response to anesthesia Denies family history of Ovarian cancer Myocardial infarction Breast cancer Colorectal cancer Social History Smoking Status: Former smoker Tobacco Type: Cigarettes Age Started Using Tobacco: 19; packs per day: 0.5; Second Hand Exposure: Yes (Father ); Do You Dip or Chew Tobacco: Yes (1 can every 1-2 days); Hx Alcohol Use: No Hx Substance Use: No Preferred Language: Romanian Communication Ability: Effective Visual Impairment: Limited Hearing Ability: Hard of Hearing [place] Tier Required: No Beliefs That Will Affect Care: None marital status: Current Living Situation: Spouse current occupational status: employed 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 How many Children do You have: 3 Other Information That Helps Us Care for You: No Feels Safe at Home: Yes Safety Concerns: Feels Safe At This Time Childhood Exposure to Second-Hand Smoke: Yes (Father smoked in home ) Diet: regular caffeine: Yes (1 cup coffee/day ) Dental Care, Regularly: Yes Physical Activity Frequency: Daily Seatbelt Use: sometimes Sunscreen Use: No Assistive Devices: None Physical Exam Physical Exam: Gen: appearing well, in no acute distress CV: RRR, no m/r/g Resp: clear to auscultation b/l, no w/r/R GI/Abd: normo-hyperactive BS, abdomen with mild dullness to percussion of LLQ, nontender to palpation, no distension or guarding Skin: R medial buttock: 3cm transverse by 6-7cm sagittal area of swelling, induration, erythema, and tenderness to palpation, 2cm area of superior portion with 0.5cm opening with scant coates-yellow discharge Results & Data Results & Data Vital Signs (Past 12 Hours) Vital Signs Temp Pulse Pulse Resp BP BP Pulse Ox 08/24/25 12:57 36.8 C 87 16 124/74 100 08/24/25 10:59 36.1 C L 84 18 129/75 97 O2 Del Method 08/24/25 12:57 Room Air 08/24/25 10:59 Room Air Code Status & VTE Plan VTE Prophylaxis Plan VTE Prophylaxis will be ordered: Yes Supervising Physician Co-Signing Physician Notes I personally examined the patient and verified all gomez points of history and exam, discussed case, and agree with decision making with Dr Ha Pain in buttocknot better on Augmentin. Vitals noted, in general he is awake and alert pleasant no distress. HEENT normocephalic atraumatic mucous membranes moist. Breathing unlabored no accessory muscle use good effort. Skin shows right buttock with erythema and maybe a little bit of induration but also a small area draining some thin greenish-brown exudate. Labs and diagnostics noted. Cellulitisfailed outpatient treatmentgiven that there is not overtly an abscess as culprit, it seems more likely that he failed outpatient treatment due to resistant gram-positive organisms drop Augmentin and start vancomycin. Follow clinically. Appreciate surgical backupdrain if needed, but I agree with surgical assessment that it seems like things are spontaneously draining. If he fails to improve over the next roughly 48 hours, would ask surgery to consider draining what is there if anything, and if he improves with antibiotics alone, it will be easy to switch to outpatient coverage accounting for the potential for MRSA type gram-positive organisms. DVT prophylaxisLovenox otherwise as above Resident Activity Tracking Resident Involvement: Resident Care Provided Care Provided: Adult Hospital Medicine
[2025-08-24] MEDS ORDERED: ONDANSETRON INJ 2 MG/ML 2 ML VIAL IV PRN (16:15)
[2025-08-24] MEDS ORDERED: VANCOMYCIN CONSULT ACTIVE PRN (16:15)
[2025-08-24] MEDS ORDERED: ACETAMINOPHEN 325 MG TAB PO PRN (16:15)
[2025-08-24] MEDS ORDERED: MELATONIN 3 MG TAB PO PRN (16:15)
[2025-08-24] MEDS ORDERED: MAGNESIUM HYDROXIDE SUSP 30 ML UDC PO PRN (16:15)
[2025-08-24] MEDS ORDERED: POLYETHYLENE (MIRALAX) 17 GM PACK PO PRN (16:15)
[2025-08-24] MEDS: VANCOMYCIN HCL 2,000 MG in SODIUM CHLORIDE 0.9% 500 ML IV ONE (17:22)
[2025-08-24] MEDS: LACTATED RINGER'S 1,000 ML IV SCH (17:24)
--- NOTE | 2025-08-24 17:27 | Billing Data ---
Date of Service August 24, 2025 Coding Level of Care Code 67273 INT INP/OBS CARE
[2025-08-24] MEDS: ENOXAPARIN INJ 40 MG/0.4 ML SYR SQ SCH (18:41)
[2025-08-25] MEDS: VANCOMYCIN HCL / NSS 1,000 MG/270 ML BAG IV SCH (07:25)
[2025-08-25 07:37] LABS: Hematocrit (blood only) 30.1 % (42.0-52.0); Hemoglobin 10.5 g/dL (14.0-18.0); Mean Corpuscular Hemoglobin 31.1 pg (25.0-34.0); Mean Corpuscular Volume 89.1 fL (80.0-100.0); Platelet Count 168 K/uL (130-400); RDW Standard Deviation 43.8 fL (36.4-46.3); Red Blood Count 3.38 M/uL (4.70-6.10); White Blood Count 9.65 K/ul (4.8-10.8)
[2025-08-25 08:00] LABS: Blood Urea Nitrogen 24.0 mg/dl (6-23); Carbon Dioxide 26.0 mmol/L (21-32); Creatinine Clr Calc Pharmacy 45.4 ml/min; Glucose 109.0 mg/dl (70-99(Fasting))
[2025-08-25 08:16] LABS: Anion Gap 6.0 (3-11); Calcium 8.3 mg/dl (8.6-10.3); Chloride 105.0 mmol/L (98-107); Potassium 3.5 mmol/L (3.5-5.1); Sodium 137.0 mmol/L (136-145)
[2025-08-25] MEDS: TRIAMTERENE/HCTZ 37.5/25MG TAB PO SCH (09:32)
[2025-08-25] MEDS: FINASTERIDE 5 MG TAB PO SCH (09:32)
[2025-08-25] MEDS: ASPIRIN 81 MG ECTAB PO SCH (09:32)
[2025-08-25] MEDS: ATENOLOL 50 MG TABLET PO SCH (09:32)
--- NOTE | 2025-08-25 09:42 | Pharmacy Report ---
Pharmacy PK ABX Note - Date of Service August 25, 2025 - Assessment and Plan Assessment 79 year old M receiving vancomycin for treatment of cellulitis/abscess of the R buttock. Was started on Augmentin outpatient 08/22 and reported to the ED 08/24 with no improvement and significant pain. Surgery consulted but no indication for surgical intervention as the abscess is draining. * Pt with CKD III -SCr on admit was elevated (1.79) but returned to baseline today (baseline per nephro 1.4-1.7), mild leukocytosis on admit which as since resolved, afebrile, and no reported body aches or chills. Day # 2 of antimicrobial therapy. Plan Vancomycin * Loading dose: 2000 mg IV x 1 * Maintenance dose: 1250 mg IV every 24 hours * Regimen is predicted to achieve target AUC/ALICE of 400-600 mg/L.hr * Trough level ordered for: 08/27 with morning labs Pharmacy will continue to follow and will adjust dose/frequency as necessary. Thank you. Pharmacy has transitioned to AUC monitoring for vancomycin. AUC/ALICE is the preferred PK/PD target and is associated with decreased risk of nephrotoxicity compared to traditional trough targets.
--- NOTE | 2025-08-25 10:07 | Surgery Progress Note ---
<Statement entered by Ankit Garza MD - 08/25/25 11:12> I independently saw and examined the patient, and I agree with the assessment and plan of care. Date of Service August 25, 2025 Assessment & Plan (1) Abscess of buttock, right: Plan: Patient seen and evaluated this morning. States that he is feeling better than yesterday. -Has been on IV antibiotics, afebrile, WBC 9.6. -The area of concern is indurated and does have overlying erythema. However, no fluctuance or palpable abscess that could benefit from drainage at this time. -Discussed with the patient of offloading on that side along with warm compresses -Would recommend IV antibiotics for an additional day and then he can transition to oral antibiotics for 2 weeks. -Patient also will follow-up with Dr. Garza in our outpatient clinic in the next week or 2. -Surgery will sign off at this time, please reconsult with any questions or concerns Admission and Anticipated Discharge Date Admission Date: August 24, 2025 Subjective Patient seen and evaluated at bedside with Dr. Garza. Patient states that he is feeling a little better than at time of admission, however is still having some pain at the right buttock region Vital signs stable, patient afebrile, WBC 9.6, on IV abx Physical Exam Constitutional: WD/WN, vitals as above Respiratory: normal respiratory effort, lungs clear to auscultation Cardiovascular: Rate/Rhythm: regular rate Gastrointestinal (Abdomen): normal bowel sounds, soft, nontender, no hepatosplenomegaly Skin: +induration and erythema from right butt ock region towards the perineum. Tender to palpation No overlying fluctuance/drainable abscess at this time Results & Data Vital Signs (Past 12 Hours) Vital Signs Temp Pulse Resp BP Pulse Ox O2 Del Method 08/25/25 07:38 37.1 C 68 16 113/66 94 Room Air 08/25/25 07:37 Room Air 08/24/25 23:28 36.7 C 81 18 108/66 94 Room Air PG Care Time/CCT Total # of Minutes Spent Total Time Spent with Patient: Total time spent is greater than 50% in coordination of care (as documented) at patient's floor/unit and/or counseling patient: Coding [place] [address] SUB INP/OBS CARE 10/15MIN Patient Type Established History Problem Focused Exam Problem Focused Medical Decision Making Straight Forward Diagnoses Abscess of buttock, right L02.31
--- NOTE | 2025-08-25 10:08 | Hospitalist Progress Note ---
Date of Service August 25, 2025 Assessment & Plan (1) Cellulitis and abscess of buttock: Elaine Crowder is a 79yo male with a PMH of prostate cancer with no prostate surgical history, HTN, hemorrhoids, HLD, put on Augmentin for R buttock abscess/cellulitis 2 days ago (08/22) by PCP, came to the ED today for no reported improvement and continued significant pain, pt was admitted for management of inadequate outpatient abx treatment of skin infection. Requires inpatient admission for management of persistent cellulitis with IV antibiotics, vital sign monitoring, and daily labs. #Cellulitis of R buttock #Small abscess WBC improving 12.7 -> 9.6; vital signs have remained stable and without fevers, body aches or chills Area of induration and erythema from right medial buttock region towards the perineum which is tender to palpation - due to inadequate improvement while on Augmentin which was started 08/22, will suspect MRSA and continue treating with vancomycin IV Vancomycin consult following Ordered wound cultures for transition to appropriate oral abx; if none collected or resulted by 08/26 AM, will decide on oral abx based on likelihood of appropriate MRSA coverage: likely Bactrim encouraged ambulation and warm compresses to the area - Gen surg consulted, appreciate recs: currently no indications for surgical I&D at this time Recommending IV vancomycin into 08/26/25, the switch to appropriate oral abx for 2 weeks Followup in gen surg outpatient in about 2 weeks as well - CBC AM #CKD III Creatinine improved 1.79 -> 1.55 (baseline appearing around 1.5-1.6, last nephro note saying 1.4-1.7) - pt admits to lack of PO fluid intake, so there is likely some dehydration, but there is no evidence of CORINNE at this time - IV fluids discontinued - BMP AM chronic, stable: HLD- continue simvastatin 20mg daily, aspirin 81mg daily HTN- continue amlodipine and atenolol daily, may hold per low BP protocol prostate cancer- continue finasteride while in hospital VTE ppx: lovenox 40mg subQ q24 dispo: med/surg Admission and Anticipated Discharge Date Admission Date: August 24, 2025 Supervising Physician Co-Signing Physician Notes I personally examined the patient and verified all gomez points of history and exam, discussed case, and agree with decision making with Dr Ha Feeling may be marginally better than yesterday. Vitals noted, in general he is awake and alert pleasant no distress. HEENT normocephalic atraumatic mucous membranes moist. Breathing unlabored no accessory muscle use good effort. Skin shows right buttock with erythema and maybe a little bit of induration but also a small area draining some thin greenish-brown exudate. exam reasonably similar to yesterday just a little bit less exudate. Labs and diagnostics noted. Cellulitisfailed outpatient treatmentgiven that there is not overtly an abscess as culprit, it seems more likely that he failed outpatient treatment due to resistant gram-positive organisms Continue vancomycin and follow. Is only been on this for about 24 hours certainly too soon to call treatment failure. Appreciate surgical input in regards to possible abscess or not. Continue current care and follow. DVT prophylaxisLovenox otherwise as above Subjective States he is feeling overall better in general, and that R buttock infection pain is a bit better. Denies any new drainage, denies any bleeding. No fever, body aches, or chills, reported. Has been eating and drinking better. Physical Exam Physical Exam: Gen: appearing well, in no acute distress CV: RRR, no m/r/g Resp: clear to auscultation b/l, no w/r/R GI/Abd: normo-hyperactive BS, abdomen with mild dullness to percussion of LLQ, nontender to palpation, no distension or guarding Skin: 3x7-8gq area on R medial buttock w/ erythema, induration, and tenderness to palpation, no obvious drainage at this time Results & Data Results & Data Vital Signs (Past 12 Hours) Vital Signs Temp Pulse Resp BP Pulse Ox O2 Del Method 08/25/25 07:38 37.1 C 68 16 113/66 94 Room Air 08/25/25 07:37 Room Air 08/24/25 23:28 36.7 C 81 18 108/66 94 Room Air Resident Activity Tracking Resident Involvement: Resident Care Provided Care Provided: Adult Hospital Medicine
[2025-08-25] MEDS: POTASSIUM CHLORIDE 10 MEQ TABCR PO STA (11:17)
--- NOTE | 2025-08-25 18:44 | Billing Data ---
Date of Service August 25, 2025 Coding Level of Care Code 28036 SUB INP/OBS CARE
[2025-08-26 08:07] VITALS: BP 122/75; PULSE 70; RESP 18; TEMP 98.4; O2SAT 95
[2025-08-26] MEDS: VANCOMYCIN HCL 1,250 MG in SODIUM CHLORIDE 0.9% 250 ML IV SCH (08:07)
[2025-08-26 08:49] LABS: Hematocrit (blood only) 33.4 % (42.0-52.0); Hemoglobin 11.5 g/dL (14.0-18.0); Mean Corpuscular Hemoglobin 30.5 pg (25.0-34.0); Mean Corpuscular Volume 88.6 fL (80.0-100.0); Platelet Count 233 K/uL (130-400); RDW Standard Deviation 43.4 fL (36.4-46.3); Red Blood Count 3.77 M/uL (4.70-6.10); White Blood Count 12.58 K/ul (4.8-10.8)
[2025-08-26 09:01] LABS: Anion Gap 7.0 (3-11); Blood Urea Nitrogen 23.0 mg/dl (6-23); Calcium 8.9 mg/dl (8.6-10.3); Carbon Dioxide 28.0 mmol/L (21-32); Chloride 102.0 mmol/L (98-107); Creatinine Clr Calc Pharmacy 47.3 ml/min; Glucose 110.0 mg/dl (70-99(Fasting)); Potassium 3.8 mmol/L (3.5-5.1); Sodium 137.0 mmol/L (136-145)
--- NOTE | 2025-08-26 09:04 | Hospitalist Progress Note ---
Date of Service August 26, 2025 Assessment & Plan (1) Cellulitis and abscess of buttock: Elaine Crowder is a 79yo male with a PMH of prostate cancer with no prostate surgical history, HTN, hemorrhoids, HLD, put on Augmentin for R buttock abscess/cellulitis 2 days ago (08/22) by PCP, came to the ED today for no reported improvement and continued significant pain, pt was admitted for management of inadequate outpatient abx treatment of skin infection. Requires inpatient admission for management of persistent cellulitis with IV antibiotics, vital sign monitoring, and daily labs. #Cellulitis of R buttock #Small abscess WBC seems to have gone up from 12.7 -> 9.6 -> 12.58 this AM (08/26/25); vital signs have remained stable and without fevers, body aches or chills. WBC on 08/25 may have been falsely low. Area of induration and erythema from right medial buttock region towards the perineum which is tender to palpation - due to inadequate improvement while on Augmentin which was started 08/22, will suspect MRSA and continue treating with vancomycin IV Vancomycin consult following Ordered wound cultures for transition to appropriate oral abx; if none collected or resulted by 08/26 AM, will decide on oral abx based on likelihood of appropriate MRSA coverage: likely Bactrim encouraged ambulation and warm compresses to the area - Gen surg consulted, appreciate recs: currently no indications for surgical I&D at this time Recommending IV vancomycin into 08/26/25, the switch to appropriate oral abx for 2 weeks Followup in gen surg outpatient in about 2 weeks as well - CBC AM #CKD III Creatinine improved 1.79 -> 1.55 -> 1.49 this AM 08/26/25 (baseline appearing around 1.5-1.6, last nephro note saying 1.4-1.7) - pt admits to lack of PO fluid intake, so there is likely some dehydration, but there is no evidence of CORINNE at this time - IV fluids discontinued - BMP AM chronic, stable: HLD- continue simvastatin 20mg daily, aspirin 81mg daily HTN- continue amlodipine and atenolol daily, may hold per low BP protocol prostate cancer- continue finasteride while in hospital VTE ppx: lovenox 40mg subQ q24 dispo: med/surg Admission and Anticipated Discharge Date Admission Date: August 24, 2025 Subjective Patient is a 79 year old male who appears to be doing well this AM. States he fell asleep late last night but seems to have slept throughout the night. Also believes the abscess went down in size. Reports he gets short of breath on exertion. Denies any chest pain, fevers, or chills. Review of Systems Review of Systems: as per HPI Physical Exam Constitutional: WD/WN, vitals as above Eyes: + anicteric sclerae and EOM intact bilat erally Respiratory: normal respiratory effort, lungs clear to auscultation Cardiovascular: RRR, no murmur, no edema Skin: no rashes, warm and dry Psychiatric: Eye Contact: good eye contact Speech: normal rate/rhythm/volume of speech Thought Process: goal directed thought process and linear/logical thought process Results & Data Results & Data Vital Signs (Past 12 Hours) Vital Signs Temp Pulse Resp BP BP Pulse Ox O2 Del Method 08/26/25 08:06 36.9 C 70 18 122/75 95 Room Air 08/25/25 23:00 37 C 71 20 126/71 94 Room Air 08/25/25 21:15 Room Air Laboratory Results 08/26/25 Range/Units 08:15 WBC 12.58 H (4.8-10.8) K/ul RBC 3.77 L (4.70-6.10) M/uL Hgb 11.5 L (14.0-18.0) g/dL Hct 33.4 L (42.0-52.0) % MCV 88.6 (80.0-100.0) fL MCH 30.5 (25.0-34.0) pg MCHC 34.4 (32.0-36.0) g/dL RDW Std Deviation 43.4 (36.4-46.3) fL RDW Coeff of Martir 13.2 (11.5-14.5) % Plt Count 233 (130-400) K/uL MPV 9.3 L (9.4-12.4) fL Sodium Pending Potassium Pending Chloride Pending Carbon Dioxide Pending Anion Gap Pending BUN Pending Creatinine Pending Est Cr Clr Drug Dosing Pending eGFR Pending BUN/Creatinine Ratio Pending Glucose Pending Calcium Pending
--- NOTE | 2025-08-26 10:57 | Discharge Summary ---
Date of Service August 26, 2025 Admission HPI Per Admitting Provider eVl is a 79yo male with history of prostate cancer with no surgical history, CKD3, HTN, HLD here with concern for non-improving R buttock skin infection. Notes he started feeling "crummy" last weekend maybe as early as sunday 08/19 with general malaise. States he may have had a low-grade fever and some chills on Thursday into Tuesday 08/21. Went to his PCP on 08/22 for concern about pain on his R inner buttock, was prescribed Augmentin for suspected skin infection, and well as given a steroid cream (Lotrisone) for a rash on b/l buttocks L>R. Came to the ER today due to concern about his infection not improving- notes it hasn't gotten much worse, just not getting any better. Denies any significant fever, body aches, chills, or sweats within the past few days but does note he's been feeling a bit generally fatigued and with low dietary/fluid intake for about the last 5 days. Denies any concern about bowel movements, last was within the past couple days, no pain or blood noted. 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 ER course: 1L NS bolus, started on zosyn 4.5g (has since been discontinued) Admission Exam Per Admitting Provider Gen: appearing well, in no acute distress CV: RRR, no m/r/g Resp: clear to auscultation b/l, no w/r/R GI/Abd: normo-hyperactive BS, abdomen with mild dullness to percussion of LLQ, nontender to palpation, no distension or guarding Skin: R medial buttock: 3cm transverse by 6-7cm sagittal area of swelling, induration, erythema, and tenderness to palpation, 2cm area of superior portion with 0.5cm opening with scant coates-yellow discharge Principal Diagnosis MRSA cellulitis and abscess of R buttock Discharge Exam Constitutional WD/WN, vitals as above Eyes + anicteric sclerae and EOM intact bilaterally Respiratory normal respiratory effort, lungs clear to auscultation Cardiovascular RRR, no murmur, no edema Skin no rashes, warm and dry Psychiatric Eye Contact: good eye contact Speech: normal rate/rhythm/volume of speech Thought Process: goal directed thought process and linear/logical thought process Discharge Data Allergies Allergy/AdvReac Type Severity Reaction Status Date / Time No Known Allergies Allergy Verified 08/22/25 10:17 Consultations 08/24/25 13:25 ED Decision to Admit Stat 08/24/25 16:15 Consult General Surgery Routine Ordered Studies 08/24/25 11:18 CT pelvis w/IV con only Stat Hospital Course (1) Cellulitis and abscess of buttock: Elaine Crowder is a 79yo male with a PMH of prostate cancer with no prostate surgical history, HTN, hemorrhoids, HLD, put on Augmentin for R buttock absce ss/cellulitis 2 days ago (08/22) by PCP, came to the ED today for no reported improvement and continued significant pain, pt was admitted for management of inadequate outpatient abx treatment of skin infection. Requires inpatient admission for management of persistent cellulitis with IV antibiotics, vital sign monitoring, and daily labs. #Cellulitis of R buttock #Small abscess WBC seems to have gone up from 12.7 -> 9.6 -> 12.58 this AM (08/26/25); vital signs have remained stable and without fevers, body aches or chills. Area of induration and erythema from right medial buttock region towards the perineum which is tender to palpation - due to inadequate improvement while on Augmentin which was started 08/22, will suspect MRSA and continue treating with vancomycin IV Vancomycin consult following Ordered wound cultures for transition to appropriate oral abx; if none collected or resulted by 08/26 AM, will decide on oral abx based on likelihood of appropriate MRSA coverage: likely Bactrim encouraged ambulation and warm compresses to the area - Gen surg consulted, appreciate recs: currently no indications for surgical I&D at this time Recommending IV vancomycin into 08/26/25, the switch to appropriate oral abx for 2 weeks Followup in gen surg outpatient in about 2 weeks as well - CBC AM #CKD III Creatinine improved 1.79 -> 1.55 -> 1.49 this AM 08/26/25 (baseline appearing around 1.5-1.6, last nephro note saying 1.4-1.7) - pt admits to lack of PO fluid intake, so there is likely some dehydration, but there is no evidence of CORINNE at this time - IV fluids discontinued - BMP AM chronic, stable: HLD- continue simvastatin 20mg daily, aspirin 81mg daily HTN- continue amlodipine and atenolol daily, may hold per low BP protocol prostate cancer- continue finasteride while in hospital VTE ppx: lovenox 40mg subQ q24 dispo: med/surg Total Time Total Time Spent Total Time Spent (In Minutes): <30 Discharge Plan Discharge Items Patient Disposition: Home - Self-Care Reason For Visit: CELLULITIS FAILED OUTPT Discharge Diagnosis: MRSA cellulitis and abscess of R buttock Condition on Discharge: Good Activity: Per Instructions section Non-emergency contact: Primary Care Provider Call non-emergency contact if: your symptoms worsen, your pain is not controlled, you have a fever, your wound has increased redness, your wound has increased drainage and your wound pain has increased Follow-up/Referrals: Jayden Granados DO [Primary Care Provider] - Ankit Garza MD [Surgeon] - (follow up with Dr. Garza in 1-2 weeks for right buttock abscess ) Diet: Regular Addtl Attending Provider Instructions: You were admitted to the hospital for no reported improvement and continued significant pain of R buttock abscess and skin infection. Since the usual antibiotic coverage for skin/GI infections did not seem to take care of your infection, we started you on IV vancomycin, which covers resistant bacterial like MRSA (methicillin-resistant staph aureus). Due to your clinical improvement and medical stability, we feel comfortable with you completing your antibiotic course with oral linezolid outside of the hospital with close PCP followup. #Cellulitis of R buttock #Small abscess, draining Started on IV vancomycin, which covers MRSA- was not covered by the initial Augmentin you were prescribed on 08/22/25. - encouraged to try warm compresses to the area - gen surg consulted, appreciate recs: currently no indications for surgical I&D as wound is draining, but they will follow along - CBC AM #CKD III Creatinine 1.79, up from his usual baseline appearing around 1.5-1.6 (last nephro saying 1.4-1.7) - pt admits to lack of PO fluid intake, so there is likely some dehydration, but there is no evidence of CORINNE at this time - adding LR 125cc/hr as PO fluid intake remains low - BMP AM chronic, stable: HLD- continue simvastatin 20mg daily, aspirin 81mg daily HTN- continue amlodipine and atenolol daily, may hold per low BP protocol prostate cancer- continue finasteride while in hospital Pending Studies at Discharge: No Stand-Alone Forms: My [facility] [employer], Smoking Cessation Medications and DC Order Prescriptions: New linezolid 600 mg tablet 600 mg PO BID Qty: 14 0RF Continued simvastatin 20 mg tablet 20 mg PO HS Qty: 90 3RF allopurinol 100 mg tablet 200 mg PO QPM Qty: 180 3RF amlodipine 5 mg tablet 5 mg PO QAM Qty: 90 3RF atenolol 50 mg tablet 50 mg PO QAM Qty: 90 2RF triamterene-hydrochlorothiazid 37.5-25 mg tablet 1 tab PO QAM Qty: 90 3RF aspirin 81 mg tablet 81 mg PO .COMPLEX Patient Comments: 81 mg PO every other day Rx Instructions: 81 mg PO every other day dutasteride 0.5 mg capsule 0.5 mg PO QAM cholecalciferol (vitamin D3) 50 mcg (2,000 unit) capsule 0 mcg PO DAILY Patient Comments: 08/24 Per patient not sure about the strength but he takes it once a month Discontinued amoxicillin-pot clavulanate 875-125 mg tablet 1 tab PO BID Qty: 20 0RF Discharge Orders: Discharge Order (Routine); Ordered 08/26/25 Ordered By: Khalif Wylie Admission Data Admit Date/Time: 08/24/25 13:51 Attending Provider: Ravinder Vance Admit Provider: Khalif Ha V. Primary Care Provider: Jayden Granados Other Providers: Ankit Garza; Ravinder Vance Other Interventions: Discharge Summary Assessment (RN) Last Done: 08/26/25 13:07 Supervising Physician Co-Signing Physician Notes I personally examined the patient and verified all gomez points of history and exam, discussed case, and agree with decision making with Dr Wylie Feeling noticeably better. Pain under better control. Much more comfortable. Feels up to going home.Vitals noted, in general he is awake and alert pleasant no distress. HEENT normocephalic atraumatic mucous membranes moist. Breathing unlabored no accessory muscle use good effort. Skin shows right buttock with Nicely resolving erythema no exudate less indurated, noticeably less tenderoverall much improved. Cellulitisfailed outpatient treatmentgiven that there is not overtly an abscess as culprit, it seems more likely that he failed outpatient treatment due to resistant gram-positive organisms Improved nicely on vancomycin. Safe/stable for home. Does not have anything that appears to require drainage at this timeobviously follow through to resolution. Given the high probability of resistant gram-positive such as MRSA, and given our local antibiogram shows 100% efficacy with linezolid, about 90% efficacy with Bactrim, about 80% efficacy with doxycyclineand given his CKD makes me hesitant to utilize Bactrim, and the fact that he has already failed antibiotics, has been in the hospital, and would risk the necessity of a small surgical procedure, but a surgical procedure nonetheless if we were to fail with current treatmentwill utilize linezolid to ensure adequate resolution. He has had 3 days of vancomycin. I prescribed a week of linezolidbut asked that he be seen in the office next week. If it continues to resolve nicely, I discussed with him that the antibiotic course can and should be shortened based on his resolution, but if he was resolving slowly I wanted to make sure that he had enough that should his PCP tell him to continue/extend the course he would not require picking up a new prescription for a few more days of added coverage. DVT prophylaxisLovenox otherwise as above Resident Activity Tracking Resident Involvement: Resident Care Provided Care Provided: Adult Hospital Medicine
--- NOTE | 2025-08-26 18:10 | Billing Data ---
Date of Service August 26, 2025 Coding Level of Care Code 71566 IN/OBS DISCH 30 MIN/LESS
== END 2025-08-26 13:48 | disposition home or self-care (01) | DRG 603 ==
LOC: ED 10:57 → 3W 13:51